=== PATIENT | male | born 1975 | race Caucasian/White ===

== ENCOUNTER 2021-11-04 04:00 | Inpatient (IN) | payer MEDICAID ==
[~2021-11-04] VITALS: Ht 175.3 cm; Wt 90.9 kg
[2021-11-04] MEDS ORDERED: normal saline 1000ml 1,000 ML IV ONE (04:35)
[2021-11-04] MEDS ORDERED: ondansetron/PF 4mg/2ml inj IV ONE (04:35)
[2021-11-04] MEDS ORDERED: morphine 4 MG/ML inj SYRINge IV ONE ×2 (04:35→08:00)
[2021-11-04] MEDS ORDERED: iohexol 300mg/ml 100ml inj. ONE (04:58)
[2021-11-04 05:12] LABS: ALANINE AMINOTRANSFERASE 87 U/L (12-78); ALBUMIN/GLOBULIN RATIO 1.1 (1.1-1.5); ALKALINE PHOSPHATASE 144 IU/L (46-116); ANION GAP 20 (8-16); ASPARTATE AMINO TRANSFERASE 34 U/L (10-37); BLOOD UREA NITROGEN 23 MG/DL (7-18); BUN/CREATININE RATIO 18.7 (5.4-32.0); CALCIUM 9.5 MG/DL (8.5-10.1); CHLORIDE 96 MMOL/L (99-107); CREATININE 1.23 MG/DL (0.60-1.10); LIPASE 134 U/L (73-393); POTASSIUM 4.4 MMOL/L (3.5-5.1); SODIUM 130 MMOL/L (135-145); TOTAL PROTEIN 7.8 G/DL (6.4-8.2); eGFR 63 ML/MIN
[2021-11-04 05:14] LABS: GLUCOSE 455 MG/DL (70-104)
[2021-11-04 05:15] LABS: BASOPHILS % (AUTO) 0.3 % (0-1); EOSINOPHILS % (AUTO) 0 % (0-6); NEUTROPHILS % (AUTO) 83.7 % (42-75); TOTAL CARBON DIOXIDE 14.2 MMOL/L (24-32)
[2021-11-04 05:17] LABS: HEMATOCRIT 54.1 % (42.0-52.0); LYMPHOCYTES # (AUTO) 1.3 X10'3 (1.1-4.8); LYMPHOCYTES % (AUTO) 9.3 % (21-51); MEAN CORPUSCULAR HEMOGLOBIN 31.2 PG (27.0-31.0); MEAN CORPUSCULAR HGB CONC 34.9 g/dL (33.0-36.5); MEAN CORPUSCULAR VOLUME 89.3 FL (78-98); MEAN PLATELET VOLUME 9.7 FL (7.4-10.4); MONOCYTES % (AUTO) 6.7 % (2-12); PLATELET COUNT 244 X10'3 (140-440); RED BLOOD COUNT 6.06 X10'6 (4.70-6.10); WHITE BLOOD COUNT 14.3 X10'3 (4.5-11.0)
[2021-11-04 05:21] LABS: CLARITY,URINE CLEAR (Clear); COLOR,URINE YELLOW (Yellow); GLUCOSE, URINE >=1000 mg/dl (Neg); KETONES,URINE >=80 mg/dl (Neg); LEUKOCYTE ESTERASE ,URINE NEGATIVE (Neg); NITRITES, URINE NEGATIVE (Neg); OCCULT BLOOD,URINE NEGATIVE (Neg); PROTEIN,URINE NEGATIVE (Neg); UROBILINOGEN,URINE 0.2 E.U/dL (0.2-1.0)
[2021-11-04 05:23] LABS: UA COLLECTION TYPE CLN CATCH MIDSTREAM
[2021-11-04] MEDS ORDERED: potassium CL 20mEq in D5-1/2NS 1,000 ML IV PRN (05:35)
[2021-11-04] MEDS ORDERED: insulin regular, human U-100 3ml vial - multi-dose IV PRN ×2 (05:35→08:25)
[2021-11-04 05:37] LABS: HEMOGLOBIN 18.9 g/dl (14.0-17.9)
[2021-11-04] MEDS: Insulin Reg/NS 100units/100mL 100 ML IV SCH ×2 (05:50→19:07)
[2021-11-04 05:51] LABS: BACTERIA,URINE NONE SEEN /HPF (Neg); HYALINE CASTS 0-3 /LPF (NEGATIVE); MUCUS STRANDS NONE SEEN /LPF (Neg); RBC,URINE NONE SEEN /HPF (0-2); SQUAMOUS EPITHELIAL CELL,UR FEW /LPF (FEW); WBC,URINE 0-4 /HPF (0-4)
[2021-11-04] MEDS ORDERED: normal saline 1000ml 1,000 ML IV SCH (06:20)
[2021-11-04] MEDS ORDERED: potassium Cl 20 mEq SR tablet PO PRN ×6 (06:20→08:25)
[2021-11-04] MEDS ORDERED: potassium Cl 40MEQ/1/2NS 520ml 520 ML IV PRN ×4 (06:20→08:25)
[2021-11-04] MEDS ORDERED: normal saline 1000ML IV soln IVB ONE (06:30)
[2021-11-04] MEDS ORDERED: Potassium Cl inj 20 MEQ in normal saline 1000ml 1,000 ML IV SCH (07:00)
[2021-11-04] MEDS ORDERED: diphenhydrAMINE 50 mg/ml inj IV ONE (07:30)
[2021-11-04] MEDS ORDERED: metoclopramide 5 mg/ml inj IV ONE (07:30)
[2021-11-04] MEDS ORDERED: K and/or MAG REPLACEMENT MC SCH ×2 (08:00→20:00)
[2021-11-04 08:13] LABS: ABG BASE EXCESS -8.3 mmol/L (-2.0-2.0); ABG HCO3 14.4 mmol/L (22.0-26.0); ABG OXYGEN SATURATION 96.9 % (94-97); ABG PCO2 (T) 24.6 mmHg (35.0-48.0); ABG PO2 (T) 92.3 mmHg (75.0-100.0); ALLEN'S TEST POSITIVE; FCOHb 0.6 % (0.0-3.9); FMetHb 0.3 % (0.0-1.5); PATIENT TEMPERATURE 36.9; TOTAL HEMOGLOBIN 17.1 G/dl (14.0-18.0)
[2021-11-04] MEDS ORDERED: HYDROcodone/acetaminophen 5mg/325mg tablet PO PRN (08:25)
[2021-11-04] MEDS ORDERED: Neutra Phos packet PO PRN (08:25)
[2021-11-04] MEDS ORDERED: acetaminophen 650mg rectal suppository RC PRN (08:25)
[2021-11-04] MEDS ORDERED: HYDROcodone/acetaminophen 10/325mg tab PO PRN (08:25)
[2021-11-04] MEDS ORDERED: mag hydrox/Alum hydrox/simeth 30ml oral suspension PO PRN ×2 (08:25)
[2021-11-04] MEDS ORDERED: magnesium Cl slow-release 64mg tablet PO PRN (08:25)
[2021-11-04] MEDS ORDERED: magnesium hydroxide 30ml (MOM) UD suspension PO PRN (08:25)
[2021-11-04] MEDS ORDERED: metoclopramide 5 mg/ml inj IV PRN (08:25)
[2021-11-04] MEDS ORDERED: bisacodyl 10mg suppository rectal RC PRN (08:25)
[2021-11-04] MEDS ORDERED: ondansetron 4mg rapidly disintigrating tab PO PRN (08:25)
[2021-11-04] MEDS ORDERED: acetaminophen 325mg tablet PO PRN ×2 (08:25)
[2021-11-04] MEDS ORDERED: Insulin Reg/NS 100units/100mL 100 ML IV SCH (08:25)
[2021-11-04] MEDS: normal saline 1000ml 1,000 ML IV SCH ×4 (08:25→19:26)
[2021-11-04] MEDS ORDERED: sodium phosphate inj. 15 MMOL in dextrose 5%-water 250 ML IV PRN (08:25)
[2021-11-04] MEDS ORDERED: magnesium 2GM in 50ml NS 50 ML IV PRN (08:25)
[2021-11-04] MEDS ORDERED: magnesium 4gm in 100ml NS 100 ML IV PRN (08:25)
[2021-11-04] MEDS ORDERED: potassium CL 10mEq/100ml bag 100 ML IV PRN (08:25)
[2021-11-04] MEDS ORDERED: sodium phosphate inj. 30 MMOL in dextrose 5%-water 250 ML IV PRN (08:25)
[2021-11-04] MEDS ORDERED: HYDROmorphone inj. 0.5 MG/0.5 ML DISP.SYRIN IV PRN (08:25)
[2021-11-04] MEDS ORDERED: ondansetron/PF 4mg/2ml inj IV PRN (08:25)
[2021-11-04] MEDS ORDERED: sodium bicarbonate (8.4%) inj. 100 MEQ in dextrose 5% water 500ml 500 ML IV PRN (08:25)
[2021-11-04] MEDS ORDERED: sodium bicarbonate (8.4%) inj. 50 MEQ in dextrose 5% water 500ml 250 ML IV PRN (08:25)
[2021-11-04 09:18] LABS: GLUCOSE 253 MG/DL (70-104); TOTAL CARBON DIOXIDE 17.1 MMOL/L (24-32)
[2021-11-04 09:19] LABS: ALBUMIN 3.2 G/DL (3.4-5.0); BLOOD UREA NITROGEN 20 MG/DL (7-18); BUN/CREATININE RATIO 20.6 (5.4-32.0); CALCIUM 7.6 MG/DL (8.5-10.1); CREATININE 0.97 MG/DL (0.60-1.10); MAGNESIUM 1.8 MG/DL (1.5-2.4); PHOSPHORUS 2.1 MG/DL (2.3-4.5); eGFR 83 ML/MIN
[2021-11-04] MEDS: pantoprazole 40MG/NS 100ML BAG 100 ML IV SCH ×2 (09:21→20:35)
[2021-11-04] MEDS: potassium CL 20mEq in D5-1/2NS 1,000 ML IV PRN ×2 (09:44→19:28)
[2021-11-04 11:00] VITALS: BP 143/98
[2021-11-04] MEDS: potassium Cl 20mEq in NS 1,000 ML IV SCH ×3 (11:02→19:02)
--- NOTE | 2021-11-04 11:17 | NUR ---
Patient oriented to room and call light. Resting comfortably in bed in no acute distress.
[2021-11-04 12:13] LABS: BLOOD UREA NITROGEN 18 MG/DL (7-18); BUN/CREATININE RATIO 18.6 (5.4-32.0); CALCIUM 7.4 MG/DL (8.5-10.1); CREATININE 0.97 MG/DL (0.60-1.10); GLUCOSE 209 MG/DL (70-104); TOTAL CARBON DIOXIDE 18.6 MMOL/L (24-32); eGFR 83 ML/MIN
[2021-11-04] MEDS ORDERED: GLIM2TAB6 PO (13:14)
[2021-11-04] MEDS ORDERED: LISI2.5T14 PO (13:14)
[2021-11-04] MEDS ORDERED: METF-438 PO (13:14)
[2021-11-04 14:36] LABS: POTASSIUM 4.4 MMOL/L (3.3-5.1)
--- NOTE | 2021-11-04 14:53 | NUR ---
Critical Lab Value PAGER ID: [phone] MESSAGE: [facility] [id number] - Daniel Calderon - Reporting critical [place] lab result of 14 from 0800. Chery SMALLWOOD RN - EXT [id number]
[2021-11-04 15:11] LABS: ALBUMIN 3.2 G/DL (3.4-5.0); BLOOD UREA NITROGEN 16 MG/DL (7-18); CALCIUM 7.9 MG/DL (8.5-10.1); CREATININE 1.07 MG/DL (0.60-1.10); GLUCOSE 130 MG/DL (70-104); eGFR 74 ML/MIN
--- NOTE | 2021-11-04 17:53 | NUR ---
[place] documentation: I have reviewed and agree with all interventions, assessments performed and documented by Chery GALLAGHER . [place] Medication Administration: For this medication-pass time frame, all medication were reviewed, dispensed, administered and documented per hospital policy by Chery GALLAGHER .
[2021-11-04 18:05] VITALS: BP 128/83
--- NOTE | 2021-11-04 18:18 | NUR ---
Report given to Adilene
--- NOTE | 2021-11-04 18:27 | NUR ---
Problems reprioritized. Patient report given, questions answered & plan of care reviewed with
[2021-11-04 18:53] LABS: SODIUM 142 MMOL/L (135-145)
[2021-11-04 18:54] LABS: ANION GAP 9 (8-16); CHLORIDE 109 MMOL/L (99-107); POTASSIUM 3.6 MMOL/L (3.5-5.1)
[2021-11-04] MEDS: K and/or MAG REPLACEMENT MC SCH (20:00)
[2021-11-04 20:20] LABS: ALBUMIN 2.9 G/DL (3.4-5.0); ANION GAP 8 (8-16); BLOOD UREA NITROGEN 14 MG/DL (7-18); BUN/CREATININE RATIO 16.5 (5.4-32.0); CALCIUM 7.6 MG/DL (8.5-10.1); CHLORIDE 110 MMOL/L (99-107); CREATININE 0.85 MG/DL (0.60-1.10); GLUCOSE 142 MG/DL (70-104); PHOSPHORUS 1.5 MG/DL (2.3-4.5); POTASSIUM 3.7 MMOL/L (3.5-5.1); SODIUM 138 MMOL/L (135-145); TOTAL CARBON DIOXIDE 19.8 MMOL/L (24-32); eGFR > 90 ML/MIN
[2021-11-04] MEDS: heparin, porcine 5000 units/ml vial SQ SCH (20:34)
[2021-11-04] MEDS ORDERED: temazepam 15mg capsule PO PRN (21:00)
[2021-11-04 22:00] VITALS: BP 135/97
--- NOTE | 2021-11-04 22:00 | NUR ---
patient tolerated diet insulin drip discontinued as per dr Anaya
[2021-11-04] MEDS ORDERED: glucagon, human recombinant 1mg kit SUBCUT PRN (22:20)
[2021-11-04] MEDS ORDERED: MESSAGE TO PHARMACY PO ONE (22:20)
[2021-11-04] MEDS ORDERED: DEXTROSE 15 GM of carb/4 tabs (each vial/BOTTLE has 4 tablets) PO PRN ×2 (22:20)
[2021-11-04] MEDS ORDERED: dextrose 50%-water 50ml dispensing syringe IV PRN ×2 (22:20)
[2021-11-05 02:00] VITALS: BP 132/93
[2021-11-05 04:30] LABS: OCCULT BLOOD STOOL NEGATIVE (Neg)
--- NOTE | 2021-11-05 06:24 | NUR ---
Problems reprioritized. Patient report given, questions answered & plan of care reviewed with victor manuel GALLAGHER.
--- NOTE | 2021-11-05 06:27 | NUR ---
Patient in room PCU 3017. I have received report from Adilene GALLAGHER and had the opportunity to ask questions and assume patient care. Patient alert and resting in bed in no acute distress.
--- NOTE | 2021-11-05 06:30 | NUR ---
Patient in room PCU 3017. I have received report from Adilene and had the opportunity to ask questions and assume patient care.
[2021-11-05 06:51] VITALS: BP 123/93
[2021-11-05 07:07] LABS: BASOPHILS % (AUTO) 0.3 % (0-1); EOSINOPHILS % (AUTO) 0.3 % (0-6); HEMATOCRIT 49.4 % (42.0-52.0); HEMOGLOBIN 17.1 g/dl (14.0-17.9); LYMPHOCYTES # (AUTO) 1.2 X10'3 (1.1-4.8); MEAN CORPUSCULAR HEMOGLOBIN 31.1 PG (27.0-31.0); MEAN CORPUSCULAR HGB CONC 34.6 g/dL (33.0-36.5); MEAN PLATELET VOLUME 8.7 FL (7.4-10.4); MONOCYTES # (AUTO) 1.2 X10'3 (0-0.9); NEUTROPHILS # (AUTO) 9.3 X10'3 (1.8-7.7); NEUTROPHILS % (AUTO) 79.4 % (42-75); PLATELET COUNT 179 X10'3 (140-440); RED BLOOD COUNT 5.48 X10'6 (4.70-6.10); RED CELL DISTRIBUTION WIDTH 14.3 % (11.5-14.5); WHITE BLOOD COUNT 11.7 X10'3 (4.5-11.0)
[2021-11-05 07:38] LABS: ALANINE AMINOTRANSFERASE 71 U/L (12-78); ALBUMIN 3.3 G/DL (3.4-5.0); ALBUMIN/GLOBULIN RATIO 1.1 (1.1-1.5); ALKALINE PHOSPHATASE 110 IU/L (46-116); ANION GAP 11 (8-16); ASPARTATE AMINO TRANSFERASE 35 U/L (10-37); BLOOD UREA NITROGEN 14 MG/DL (7-18); BUN/CREATININE RATIO 13.5 (5.4-32.0); CALCIUM 8.2 MG/DL (8.5-10.1); CHLORIDE 104 MMOL/L (99-107); CREATININE 1.04 MG/DL (0.60-1.10); GLUCOSE 250 MG/DL (70-104); MAGNESIUM 1.8 MG/DL (1.5-2.4); PHOSPHORUS 1.6 MG/DL (2.3-4.5); POTASSIUM 4.3 MMOL/L (3.5-5.1); SODIUM 136 MMOL/L (135-145); TOTAL CARBON DIOXIDE 20.9 MMOL/L (24-32); TOTAL PROTEIN 6.4 G/DL (6.4-8.2); eGFR 76 ML/MIN
[2021-11-05] MEDS: K and/or MAG REPLACEMENT MC SCH (08:00)
[2021-11-05] MEDS ORDERED: lisinopril 2.5mg tablet PO SCH (08:00)
[2021-11-05] MEDS: pantoprazole 40MG/NS 100ML BAG 100 ML IV SCH (08:21)
[2021-11-05 08:23] VITALS: BP_SYST 147
[2021-11-05] MEDS: heparin, porcine 5000 units/ml vial SQ SCH (08:24)
[2021-11-05 08:59] LABS: POTASSIUM 3.8 MMOL/L (3.3-5.1)
[2021-11-05] MEDS: insulin Lispro (HumaLOG) vial - multi-dose SQ SCH ×2 (09:23→12:55)
[2021-11-05] MEDS ORDERED: METO25TA6 PO (11:49)
--- NOTE | 2021-11-05 13:23 | NUR ---
Patient was DC to home and picked up by michael . PIV x2 were removed with cannula intact. RX were sent to [facility] in [place]. DC instructions and warning s/s were reviewed with the patient and he verbalized understanding. Patient was alert, oriented, and appropriate at time of DC.
[2021-11-05 15:40] LABS: ANION GAP 6 (8-16); CHLORIDE 113 MMOL/L (99-107); POTASSIUM 3.8 MMOL/L (3.5-5.1); SODIUM 138 MMOL/L (135-145)
[2021-11-05] MEDS ORDERED: insulin glargine (Lantus) pen - multi-dose SQ SCH (21:00)
== END 2021-11-05 12:57 | disposition home or self-care (01) | DRG 420 ==
LOC: ER 04:00 → ED HOLD 08:28 → PCU 3S 10:43
PROVIDERS: ADMIT Family Medicine; ATTEND Family Medicine
DX: E11.10 Type 2 diabetes mellitus with ketoacidosis without coma (principal); N17.9 Acute kidney failure, unspecified; K80.20 Calculus of gallbladder without cholecystitis without obstruction; E87.1 Hypo-osmolality and hyponatremia; F31.9 Bipolar disorder, unspecified; K52.9 Noninfective gastroenteritis and colitis, unspecified; I10 Essential (primary) hypertension; K21.9 Gastro-esophageal reflux disease without esophagitis; R74.01 Elevation of levels of liver transaminase levels; Z87.11 Personal history of peptic ulcer disease; Z87.891 Personal history of nicotine dependence
CPT/HCPCS: 36415; 36600; 74176; 80048; 80053; 81001; 82272; 82803; 82948; 83605; 83690; 83735; 84100; 85018; 85025; 87045; 87046; 87081; 89055; 96361; 96374; 96375; 96376; 99291; 99292; C9113; G0378; J1200; J1644; J1815; J2270; J2405; J2765; J3480; J7030; Q9967

== ENCOUNTER 2022-08-26 10:30 | Emergency (ER) | payer MEDICAID ==
[~2022-08-26] VITALS: Ht 175.3 cm; Wt 93.2 kg
[~2022-08-26 10:30] MED LIST: GLIM2TAB6 PO; METF-438 PO; METO25TA6 PO
[2022-08-26 10:52] VITALS: BP 153/105
[2022-08-26] MEDS ORDERED: PENI250T2 PO (13:02)
[2022-08-26] MEDS ORDERED: NAPR-56 PO (13:02)
== END 2022-08-26 13:40 | disposition home or self-care (01) ==
LOC: ER 10:31
DX: K04.7 Periapical abscess without sinus (principal)
CPT/HCPCS: 99283